=== PATIENT | male | born 1930 | race Caucasian/White ===

== ENCOUNTER 2020-01-22 00:13 | Emergency (ER) | payer OTHER, BC ==
[~2020-01-22] VITALS: Ht 157.5 cm; Wt 59.4 kg
[2020-01-22 00:28] VITALS: Ht 157.5 cm; Wt 59.4 kg
[2020-01-22 03:24] VITALS: BP 179/91
== END 2020-01-22 03:24 | disposition home or self-care (01) ==
LOC: EDBD 00:13 → ED 00:13
DX: S41.102A Unspecified open wound of left upper arm, initial encounter (principal); I10 Essential (primary) hypertension; Z88.8 Allergy status to other drugs, medicaments and biological substances; W18.00XA Striking against unspecified object with subsequent fall, initial encounter; Y93.89 Activity, other specified; Y92.89 Other specified places as the place of occurrence of the external cause; Y99.8 Other external cause status
CPT/HCPCS: 90715